=== PATIENT | female | born 1955 ===

== ENCOUNTER 2024-06-17 06:36 | Outpatient (OUT) | payer OTHER, MEDICAID, SELFPAY ==
--- NOTE | 2024-06-17 06:45 | NM_ITS ---
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 TECHNIQUE: After obtaining the patient's consent, 24.5 mCi Technetium 99m MDP was injected intravenously. Images were obtained approximately two hours later. FINDINGS: ABNORMALITIES: No intense foci of radiotracer uptake to suggest metastatic disease. OTHER: Focal areas of mild radiotracer uptake compatible with degenerative changes specifically noted within the shoulders, sternomanubrial joints, cervical and lumbar facet joints, elbows, wrists. Bilateral knee replacements. Slightly greater activity within the tibial plateau of the left knee may indicate loosening of hardware. DE/DE bone scan whole body IMPRESSION: 1. No findings to suggest metastatic disease. Electronically authenticated by: ROSIE LOUIE Date: 06/17/2024 13:44
== END 2024-06-17 06:37 | disposition home or self-care (01) ==
LOC: NM 06:36
PROVIDERS: Visit Provider Internal Medicine Hematology & Oncology
DX: C50.112 Malignant neoplasm of central portion of left female breast (principal); Z17.0 Estrogen receptor positive status [ER+]
CPT/HCPCS: 78306; A9503